=== PATIENT | female | born 1975 | race Caucasian/White ===

== ENCOUNTER 2019-04-07 07:25 | Inpatient (IN) | payer MEDICAID ==
[2019-04-03 10:54] VITALS: Ht 152.4 cm; Wt 69.5 kg
[2019-04-07] VITALS (16 sets, daily range): BP systolic 119–150; BP diastolic 68–89; PULSE 90–122; RESP 10–20
[~2019-04-07] VITALS: Ht 152.4 cm; Wt 69.5 kg
[2019-04-07] MEDS ORDERED: SOD CHLORIDE 0.9% 1,000 ML IV ONE (09:00)
[2019-04-07] MEDS ORDERED: CEFAZOLIN 1 GM/50 ML (PMX) 50 ML IVPB ONE (09:00)
[2019-04-07] MEDS ORDERED: PROPOFOL 20 ML ONE (10:26)
[2019-04-07] MEDS ORDERED: MIDAZOLAM 1 MG/ML 2 ML INJ ONE (10:26)
[2019-04-07] MEDS ORDERED: CEFAZOLIN 1 GM INJ ONE (10:26)
[2019-04-07] MEDS ORDERED: FENTAnyl 50 MCG/ML VIAL ONE ×2 (10:26→12:03)
--- NOTE | 2019-04-07 11:03 | PREAC ---
Date/Time of Note Date/Time of Note DATE: 04/07/19 TIME: 11:01 Anesthesia Eval and Record Evaluation Time Pre-Procedure Interview DATE: 04/07/19 TIME: 11:01 Age 44 Sex female NPO: 8 hrs Preoperative diagnosis Left Breast Cancer Planned procedure Left Needle Localized partial Mastectomy with axillary lymph node dissection Past Medical History Past Medical History: None Surgery & Anesthesia Issues No known issue Meds Anticoagulation: No Beta Aristides within 24 hr: No Reason Beta Aristides not given: Pt. not on B-Aristides No Active Prescriptions or Reported Meds Current Medications Sodium Chloride 1,000 ml @ 75 mls/hr [id number] ONCE IV Last administered on 04/07/19at 10:17; Admin Dose 75 MLS/HR; Start 04/07/19 at 09:00; Stop 04/07/19 at 22:19 Meds reviewed: Yes Allergies Coded Allergies: No Known Allergy (Unverified , 04/07/19) Allergies Reviewed: Yes Labs/Studies Labs Reviewed: Reviewed by anesthesiologist Result Diagram: 04/03/19 1117 04/03/19 1117 test: Negative Studies: ECG (n/a), CXR (n/a) Pre-procedure Exam Last vitals Vital Signs Date Temp Pulse Resp B/P (MAP) Pulse Ox O2 O2 Flow FiO2 Time Delivery Rate 04/07/19 97.8 94 16 126/79 98 Room Air 10:10 (95) Airway: Adequate mouth opening, Adequate thyromental dist Mallampati: Mallampati II Teeth: Normal Lung: Normal Heart: Normal ASA Physical Status ASA physical status: 2 Emergency: None Planned Anesthetic General/MAC: LMA Planned Pain Management Parenteral pain med Pre-operative Attestations Prior to commencing anesthesia and surgery, the patient was re-evaluated, there was verification of: *The patient's identity *The results of appropriate recent lab work and preoperative vital signs *The above evaluation not changing prior to induction *Anesthetic plan, risk benefits, alternative and complications discussed with patient/family; questions answered; patient/family understands, accepts and wishes to proceed. MAGDALENE GARCIA MD Apr 07, 2019 11:03
[2019-04-07] MEDS ORDERED: ISOSULFAN BLUE 1% 5 ML INJ SC ONE (11:10)
[2019-04-07] MEDS ORDERED: OXYCODONE/ACETAMINOPHEN (5/325) TAB PO PRN (11:30)
[2019-04-07] MEDS ORDERED: HYDROmorphONE 1 MG/5 ML IV SYRINGE IV PRN (11:30)
[2019-04-07] MEDS ORDERED: FENTAnyl 50 MCG/ML VIAL IV PRN ×2 (11:30)
[2019-04-07] MEDS ORDERED: LABETALOL HCL 20MG INJ IV PRN (11:30)
[2019-04-07] MEDS ORDERED: DIPHENHYDRAMINE 50 MG INJ IV PRN (11:30)
[2019-04-07] MEDS ORDERED: ONDANSETRON 4 MG INJ IV PRN (11:30)
[2019-04-07] MEDS ORDERED: METOCLOPRAMIDE 10 MG INJ IV PRN (11:30)
[2019-04-07] MEDS ORDERED: MEPERIDINE 25 MG INJ IV PRN (11:30)
[2019-04-07] MEDS ORDERED: ROCURONIUM 50 MG INJ ONE (12:03)
[2019-04-07] MEDS ORDERED: EPHEDrine 25 MG/5 ML SYG ONE (12:05)
[2019-04-07] MEDS ORDERED: METOCLOPRAMIDE 10 MG INJ ONE (12:05)
[2019-04-07] MEDS ORDERED: PHENYLephrine (100 MCG/ML) 10ML SYG ONE (12:05)
[2019-04-07] MEDS ORDERED: ONDANSETRON 4 MG INJ ONE (12:05)
[2019-04-07] MEDS ORDERED: DEXAMETHASONE 4 MG/ML 5 ML INJ ONE (12:05)
[2019-04-07] MEDS ORDERED: GLYCOPYRROLATE 0.4 MG INJ ONE (12:36)
[2019-04-07] MEDS ORDERED: NEOSTIGMINE 3 MG/3 ML SYRINGE ONE (12:36)
--- NOTE | 2019-04-07 12:56 | SIPON ---
Date/Time of Note Date/Time of Note DATE: 04/07/19 TIME: 12:53 Operative Report Preoperative Diagnosis Invasive cancer left breast Postoperative Diagnosis Same Operation/Procedure Performed Left needle directed partial mastectomy and axillary dissection utilizing sentinel lymph node technique Surgeon see signature line therapist's assistant Dr Scott Anesthesia: general Estimated blood loss: 10 - 50 ml's Transfusion Required none Specimen Left partial mastectomy specimen and sentinel node with additional axillary lymph nodes Grafts/Implants none Complications none JULISSA SUMMERS MD Apr 07, 2019 12:56
--- NOTE | 2019-04-07 12:57 | PAC ---
Date/Time of Note Date/Time of Note DATE: 04/07/19 TIME: 12:57 Post-Anesthesia Notes Post-Anesthesia Note Last documented vital signs Vital Signs Date Temp Pulse Resp B/P (MAP) Pulse Ox O2 O2 Flow FiO2 Time Delivery Rate 04/07/19 98.2 94 16 126/79 98 Room Air 13:00 (95) Activity: WNL Respiratory function: WNL Cardiovascular function: WNL Mental status: Baseline Pain reasonably controlled: Yes Hydration appropriate: Yes Nausea/Vomiting absent: Yes MAGDALENE GARCIA MD Apr 07, 2019 12:57
[2019-04-07] MEDS ORDERED: morphine 2 MG INJ IV PRN (13:00)
[2019-04-07] MEDS ORDERED: ACETAMINOPHEN 1000MG/100ML IV 100 ML IVPB PRN (13:00)
[2019-04-07] MEDS: HYDROmorphONE 1 MG/5 ML IV SYRINGE IV PRN ×2 (13:08→13:13)
--- NOTE | 2019-04-07 14:37 | OPR ---
DATE OF OPERATION: 04/07/2019 PREOPERATIVE DIAGNOSIS: Invasive cancer, left breast. POSTOPERATIVE DIAGNOSIS: Invasive cancer, left breast. PROCEDURE: Left needle-directed partial mastectomy and axillary dissection utilizing sentinel lymph node technique. ANESTHESIA: General. ANESTHESIOLOGIST: Esvin Ugalde MD SURGEON: Abdulaziz Almonte MD FOOD SERVICE ORDER CLERK: Louis Scott MD INDICATIONS FOR PROCEDURE: The patient is an unfortunate 44-year-old female who underwent surveillan ce mammography and was found to have suspicious lesion in her left breast. A relatively large biopsy confirmed an invasive cancer. The patient was seen with medical oncology and the decision was made to treat her with neoadjuvant chemotherapy. She had a good response radiographically to the neoadjuv ant chemotherapy and thus decision was then made that she was a candidate for left needle-directed pa rtial mastectomy and sentinel lymph node biopsy. She consented and was scheduled for surgery. DESCRIPTION OF PROCEDURE: On the morning of surgery, the patient presented to [facility] where she underwent localization of the previous site of the lesion where the c lip was. Subsequently, she was brought to the operating theater, placed under general anesthesia. T he left breast and axillary region were prepped and draped in usual sterile fashion. Approximately 3 mL of 1% Lymphazurin blue dye were then injected peritumorally and the breast was gently massaged fo r 12 minutes. At this point, a 3 to 4 cm incision was made in the left axillary hairline. Subcutane ous tissue was dissected with cautery down through the clavipectoral fascia. Dye stained lymphatic w as identified and traced to sentinel lymph node and some additional nodes in this area appeared somew hat firm; therefore, the sentinel lymph node was resected as well as additional lymph nodes using the LigaSure device. Intraoperative analysis of the sentinel lymph node performed by attending patholog ist, Dr. Edi Chauhan was negative for evidence of metastatic disease. The nodes were then sent fo r permanent pathologic analysis and no further lymph nodes were taken. The wound was irrigated. Min imal bleeding was controlled with cautery and the skin was then reapproximated with a 4-0 Vicryl sutu re in subcuticular fashion. Attention was then directed to performing the partial mastectomy. A cur vilinear incision was made in the upper outer quadrant of the left breast in the region of the previo usly placed localization wire. Subcutaneous tissue was dissected with cautery. Skin edges were then elevated with skin hooks and wide circumferential dissection of the tissue associated with the wire then took place using cautery. The specimen was then elevated, transected, oriented and sent for rad iographic confirmation of capture. Capture was confirmed. Specimen was then sent for permanent path ologic analysis. The wound was irrigated. Minimal bleeding was controlled with cautery. Due to the large defect, Dr. Almonte made the decision to place a #10 flat Colin-Jarvis drain within the wound c avity. It was brought to the left mid axillary line and then cut to size and laid within the wound c avity. The drain was secured in place with 2-0 nylon suture in the standard fashion. The wound was irrigated final time. There was no evidence of bleeding then reapproximated with a deep dermal layer of 4-0 Vicryl sutures in interrupted fashion, followed by final skin approximation with 5-0 PDS sutu res in a subcuticular fashion. Dermabond was then applied to both incisions. The patient tolerated the procedure well. The estimated blood loss was approximately 40 mL. There were no complications a nd the patient was transported in stable condition to the recovery room where circumferential tiny leonard dressing was applied. Dictated By: ABDULAZIZ ALMONTE MD TL/CANDE Conf#: [id number] DID#: [id number] CC: JUDY HENNESSY MD;*End*
[2019-04-07] MEDS: ONDANSETRON 4 MG INJ IV PRN (15:19)
[2019-04-07] MEDS: D5W-0.45 NACL + KCL 20 MEQ 1,000 ML IV SCH ×2 (15:24→22:56)
[2019-04-07] MEDS ORDERED: PROPOFOL 200 MG INJ IV ONE (15:53)
[2019-04-07] MEDS: CIPROFLOXACIN 500 MG TAB PO SCH (18:57)
[2019-04-07] MEDS ORDERED: HYDROCODONE/APAP (5/325) TAB PO PRN (19:30)
--- NOTE | 2019-04-07 22:48 | HP ---
DATE OF ADMISSION: 04/07/2019 CHIEF COMPLAINT AND HISTORY OF PRESENT ILLNESS: The patient is a 44-year-old year female who was fou nd to have suspicious lesion in her left breast on surveillance mammography. Subsequently, patient u nderwent biopsy which confirmed invasive cancer. The patient was seen by Dr. Giraldo and underwent neoadjuvant chemotherapy. The patient apparently had good response radiographically and is being ad mitted today after undergoing left needle-directed partial mastectomy and axillary dissection. The p atient had significant chest wall pain and is being admitted for further evaluation and management. The patient denies history of headache, dizziness, syncope. No history of cough. No history of sore throat. No history of abdominal pain, nausea, vomiting. No history of leg edema. No history of fo denilson weakness. No history of recent fever or chills. REVIEW OF SYSTEMS: Other than postoperative pain, rest of review of systems unremarkable. PAST MEDICAL HISTORY: Apparently, she does have history of hypertension, although she is not on any medication and blood pressure seems to be in acceptable range. PAST SURGICAL HISTORY: Status post appendectomy. ALLERGIES: NO KNOWN DRUG ALLERGIES. SOCIAL HISTORY: The patient is single and has not had any children. No smoking or alcohol abuse. FAMILY HISTORY: The patient's mother had breast cancer. PHYSICAL EXAMINATION: GENERAL: The patient is awake, alert, fairly oriented. VITAL SIGNS: Blood pressure 132/78, pulse 99, respiration 19, temperature 98, O2 saturation 98% on 2 liters. HEENT: No eye discharge or redness. Conjunctivae and lids are normal. The patient has hair loss fr om recent chemo. Oropharynx clear. NECK: Supple, no mass or thyromegaly. CHEST: Fairly clear. CARDIOVASCULAR: S1, S2 normal. No murmur. ABDOMEN: Soft, nondistended, nontender. Bowel sounds present. EXTREMITIES: No leg edema. Pedal pulses palpable. SKIN: Without acute rash. NEUROLOGIC: The patient is awake, alert, fairly oriented with no gross focal deficit. RECENT LABORATORY DATA: WBC 6, hemoglobin 12.8, platelets 321. Chemistry: Sodium 142, potassium 4. BUN 17, creatinine 0.5, glucose 93. Serum hCG negative. Liver enzymes normal. IMPRESSION: Left breast cancer status post chemo, today, underwent surgery. PLAN: The patient admitted on medical floor. The patient will be started on clear liquid diet, whic h will be advanced as tolerated. We will also give Tylenol, Fowler and IV morphine for pain control. The patient preoperatively was diagnosed with UTI and was being given Cipro which will be continued. If the patient continues to do well, she will be discharged home tomorrow. Dictated By: JUDY LAKE/NTS Conf#: [id number] DID#: [id number] CC: JULISSA SUMMERS MD;*EndCC*
[2019-04-08] MEDS ORDERED: ZOLPIDEM 5 MG TAB PO PRN (01:30)
[2019-04-08] MEDS ORDERED: HYDROCODONE/APAP (5/325) TAB PO PRN (01:30)
[2019-04-08 02:00] VITALS: BP 110/70; PULSE 98; RESP 19
[2019-04-08] MEDS: HYDROCODONE/APAP (5/325) TAB PO PRN ×2 (03:46→12:18)
[2019-04-08] MEDS: CIPROFLOXACIN 500 MG TAB PO SCH ×2 (06:33→17:56)
[2019-04-08] MEDS: D5W-0.45 NACL + KCL 20 MEQ 1,000 ML IV SCH ×3 (06:33→16:10)
[2019-04-08 08:16] VITALS: BP 97/56; PULSE 83; RESP 14
[2019-04-08] MEDS: ONDANSETRON 4 MG INJ IV PRN (11:06)
[2019-04-08 14:00] VITALS: BP 90/58; PULSE 90; RESP 16
--- NOTE | 2019-04-08 16:28 | PN ---
DATE: 04/08/2019 Postop day #1, status post left breast needle located partial mastectomy with axillary dissection. SUBJECTIVE: No complaint. OBJECTIVE: GENERAL: Awake, alert, oriented. VITAL SIGNS: Stable. Temperature today 98.3, heart rate 98, respirations 19, blood pressure 110/70, saturation 96% on room air. HEART: Regular. LUNGS: Clear. ABDOMEN: Soft. Dressing is intact. LABORATORY DATA: WBC 6000 with 60% segmented, hemoglobin 12.8, hematocrit 39.4. Chemistry within no rmal limits. INPUT AND OUTPUT: Colin-Jarvis drain from time of operation yesterday to 7:00 today morning has dra christian 30 mL of fluid which is serosanguineous in color. ASSESSMENT AND PLAN: The patient is postop day #1 status post left breast partial mastectomy needle- directed located axillary dissection. The patient is quite stable. The patient is status post neoad juvant chemotherapy. The patient can be discharged home. Instruction for care of the Colin-Jarvis was given to the patient by myself. The patient is to call Dr. Almonte' office and make an appointment for followup. Pain medication will be given by medical service. Dictated By: VETO MEADE MD PS/NTS Conf#: [id number] DID#: [id number] CC: JUDY HENNESSY MD; JULISSA ALMONTE MD;*End*
[2019-04-08] MEDS ORDERED: HYDR-3601 PO (16:46)
--- NOTE | 2019-04-08 23:22 | DS ---
Date/Time of Note Date/Time of Note DATE: 04/08/19 TIME: 23:20 Discharge Summary Admission/Discharge Info Admit Date/Time Apr 07, 2019 at 12:58 Discharge Date/Time Apr 08, 2019 at 17:58 Patient Condition: Stable Hx of Present Illness The patient is a 44-year-old year female who was found to have suspicious lesion in her left breast on surveillance mammography. Subsequently, patient underwent biopsy which confirmed invasive cancer. The patient was seen by Dr. Giraldo and underwent neoadjuvant chemotherapy. The patient apparently had good response radiographically and is being admitted today after undergoing left nee dle-directed partial mastectomy and axillary dissection. The patient had significant chest wall pain and is being admitted for further evaluation and management. The patient denies history of headache, dizziness, syncope. No history of cough. No history of sore throat. No history of abdominal pain, nausea, vomiting. No history of leg edema. No history of focal weakness. No history of recent fever or chills. Hospital Course -Invasive cancer, left breast. S/p Left needle-directed partial mastectomy and axillary dissection utilizing sentinel lymph node technique by Dr Almonte on 04/07/19. Home Meds Active Scripts Hydrocodone Bit-Acetaminophen (Hydrocodone Bit-APAP) 5-325MG Tablet, 1 TAB PO Q4H PRN for MILD PAIN LEVEL 1-3, #30 TAB Prov:ASAD GOLDEN 04/08/19 Follow-up Plan Follow-up with Dr. Almonte in 2 weeks Primary Care Provider Not On Staff Doctor Time spent on discharge: > 30 minutes ASAD GOLDEN Apr 08, 2019 23:22
== END 2019-04-08 17:58 | disposition home or self-care (01) | DRG 580 ==
LOC: SDS 07:25 → PP2 12:58
PROVIDERS: ADMIT Surgery Surgical Oncology; ATTEND Surgery Surgical Oncology
PROC: 07B60ZX Excision of Left Axillary Lymphatic, Open Approach, Diagnostic (ICD-10-PCS; 2019-04-07)
PROC: 0HBU0ZZ Excision of Left Breast, Open Approach (ICD-10-PCS; principal; 2019-04-07 11:00)
DX: C50.912 Malignant neoplasm of unspecified site of left female breast (principal); N39.0 Urinary tract infection, site not specified; R07.89 Other chest pain
CPT/HCPCS: 80053; 84703; 85025; 85610; 85730; 88307; 88331; J0690; J1100; J1170; J2250; J2370; J2405; J2710; J2765; J3010; J3480; Q9968

== ENCOUNTER 2019-05-29 22:01 | Emergency (ER) | payer MEDICAID, OTHER ==
[~2019-05-29] VITALS: Ht 154.9 cm; Wt 69.8 kg
[~2019-05-29 22:01] MED LIST: HYDR-3601 PO; MECL12.574 PO
[2019-05-29 22:03] VITALS: Ht 154.9 cm; Wt 69.8 kg
[2019-05-29] MEDS ORDERED: MECLIZINE 12.5 MG TAB PO ONE (23:00)
[2019-05-29] MEDS ORDERED: SOD CHLORIDE 0.9% 1,000 ML IV STA (23:33)
[2019-05-30] MEDS ORDERED: DIAZEPAM 5 MG TAB PO ONE
[2019-05-30] MEDS ORDERED: KETOROLAC 30 MG INJ IV STA (01:28)
[2019-05-30 01:33] VITALS: BP 132/85; PULSE 92; RESP 18
== END 2019-05-30 01:39 | disposition home or self-care (01) ==
LOC: E/R 22:01
DX: R42 Dizziness and giddiness (principal); Z85.3 Personal history of malignant neoplasm of breast
CPT/HCPCS: 36415; 80048; 81025; 84132; 85025; 96374; J1885; J7030; Z7502; Z7610